=== PATIENT | female | born 1940 | race Caucasian/White ===

== ENCOUNTER → 2016-04-21 | Outpatient (CLI) | payer OTHER ==
--- NOTE | 2016-04-21 09:34 | EKG ---
[address] [address] Measurements Intervals [place] Rate: 74 P: -16 WA: 141 QRS: 50 QRSD: 86 T: 59 QT: 400 QTc: 428 Interpretive Statements SINUS RHYTHM WITH OCCASIONAL VENTRICULAR PREMATURE COMPLEXES POSSIBLE RIGHT VENTRICULAR CONDUCTION DELAY No previous ECG available for comparison Electronically Signed On 04-21-16 16:17:18 MST by Minor Cross [id number]
== END ==
LOC: MOB RAD 09:27
PROVIDERS: ATTEND Family Medicine
DX: R07.9 Chest pain, unspecified (principal); I49.9 Cardiac arrhythmia, unspecified; F17.210 Nicotine dependence, cigarettes, uncomplicated
CPT/HCPCS: 93005; 93010; 99213

== ENCOUNTER 2016-06-29 12:10 | Emergency (ER) | payer OTHER ==
[2016-06-29] MEDS ORDERED: NORMAL SALINE 10 ML SYRINGE FLUSH IVP PRN (12:42)
[2016-06-29] MEDS ORDERED: Famotidine Inj 20 MG in Normal Saline Flush 10 ML IVP ONE (12:42)
[2016-06-29] MEDS ORDERED: Sodium Chloride 0.9% 1,000 ML PRIMARY IV ONE (12:42)
[2016-06-29] MEDS ORDERED: Belladon/PHENobarbital Elixir 10 ML, Lidocaine Viscous Liquid 2% 15 ML, Mag Hyd/Al Hyd/... PO ONE ×3 (12:43)
[2016-06-29 12:53] LABS: BASOPHILS # (AUTO) 0.06 10*3/UL; BASOPHILS % (AUTO) 0.6 % (0-1); EOSINOPHILS # (AUTO) 0.25 10*3/UL; EOSINOPHILS % (AUTO) 2.4 % (0-8); HEMATOCRIT 45.4 % (37.0-47.0); LYMPHOCYTES # (AUTO) 2.59 10*3/uL; MEAN CORPUSCULAR HEMOGLOBIN 28.4 PG (27-31); MEAN PLATELET VOLUME 10.1 FL (7.4-12.2); MONOCYTES # (AUTO) 0.84 10*3/UL (0.3-0.8); NEUTROPHILS # (AUTO) 6.72 10*3/UL; NEUTROPHILS % (AUTO) 64.1 % (50-80); PLATELET MORPHOLOGY COMMENT NORMAL MORPHOLOGY (NORM); RBC MORPHOLOGY COMMENT NORMAL MORPHOLOGY (NORM); RED BLOOD COUNT 5.28 10^6/uL (4.20-5.40); WBC MORPHOLOGY COMMENT NORMAL MORPHOLOGY (NORM)
[2016-06-29 12:59] LABS: BUN/CREATININE RATIO 31.25 (6-20); SERUM ALBUMIN 4.7 g/dL (3.5-4.8)
[2016-06-29 13:29] VITALS: RESP 20; TEMP 96.7
[2016-06-29 13:50] LABS: BILIRUBIN,URINE NEGATIVE (NEG); CLARITY,URINE CLEAR (CLEAR); COLOR,URINE YELLOW; GLUCOSE, URINE (UA) NEGATIVE (NEG); NITRATE,URINE NEGATIVE (NEG); OCCULT BLOOD,URINE NEGATIVE (NEG); PH,URINE 6.5 (5.0-8.5); PROTEIN,URINE NEGATIVE (NEG); UROBILINOGEN,URINE 0.2 EU/dL (0.2)
[2016-06-29 14:15] LABS: URINE SAMPLE TYPE CLEAN CATCH URINE
--- NOTE | 2016-06-29 14:29 | DI ---
CT ABDOMEN SCAN WITH IV CONTRAST, 06/29/2016 12:42 PM : Clinical History: Abdominal pain. Previous Exam: 10/09/2009. Scans are performed from the lower lung bases through the liver and kidneys with IV contrast. 75 ml o f Isovue 300 was injected IV. No rectal or oral contrast was ordered. The lung bases are clear. Calcifications are present in the LAD, the right coronary artery, and the l eft circumflex artery. There is hepatosplenomegaly, similar in magnitude to the previous study. The p atient is status post cholecystectomy. Both adrenal glands and the pancreas are normal. In the lower pole of the spleen is a 25 mm low-density lesion. Review of the prior study shows that in retrospect, there was a 9 mm low-density lesion in the same location. Both kidneys are normal in size, shape, po sition and contour. There is no hydronephrosis or hydroureter. No renal or ureteral calculi are prese nt. There is a calcification in the region of the left renal hilum but this is in a vessel. There are no abnormal retrocrural or periaortic nodes. No ascites is present. READIN. Hepatosplenomegaly. In the lower pole spleen is a 25 mm low-density lesion. Review of the previou s scans show that in retrospect there was a 10 mm lesion in the same location. 2. The remainder of the exam is normal. CT PELVIS SCAN WITH IV CONTRAST, 06/29/2016 12:42 PM: Clinical History: See above. Previous Exam: 10/09/2009. Scans are performed from just superior to the umbilicus to the symphysis pubis with IV contrast. This is the same bolus of contrast used for the CT scans of the abdomen. Scans through the lower abdomen and pelvis show no masses or abnormal fluid collections. There is no adenopathy. The appendix is not visualized but there is no inflammatory mass either in the cecal tip or in the right lower quadrant. The small bowel, terminal ileum, and ileocecal valve are normal. The colon is also normal. There is a very small umbilical hernia through which only mesenteric fat has he rniated. The patient is status post hysterectomy and bilateral salpingo-oophorectomy. There is a lyti c lucent lesion in the body of L3 that was not present on the previous study. In addition, the verteb ral body is more sclerotic and almost has the classic "ivory" vertebral body appearance that can be s een with cases of lymphoma. READIN. A new lytic lesion has developed in the body of L3 with sharply defined margins. This vertebral b chu is also quite sclerotic in the remaining portions. The vertebral body has the appearance suggesti ve of the "ivory" vertebral body pattern that can be seen with lymphoma. 2. The remainder of the exam is normal.
--- NOTE | 2016-06-29 15:04 | PDOC ---
Abdomen/Flank HPI - General Chief Complaint: Abdomen Pain Stated Complaint: EPIGASTRIC PAIN RADIATING TO BACK Date Seen by Provider: 06/29/16 Time Seen by Provider: 10:20 Source: POSITIVE: Patient, Spouse Exam Limitations: POSITIVE: No limitations Nurse's Notes Reviewed & Considered: Yes - History of Present Illness Initial Comments: The patient is a 76-year-old female who presents to the emergency room with a 3 day history of epigastric pain with some radiation posteriorly. She also states that she has had "lots of gas". No vomiting or diarrhea. No fevers. No melena, hematochezia, hematemesis, dysuria or hematuria. She has had a appendectomy, cholecystectomy and hysterectomy. She states she has a long- standing history of similar episodes and has had this problem evaluated in the past with esophagogastroduodenoscopy. She states she has been told she has ulcers. She has a lifelong history of tobacco abuse and continues to smoke a pack of cigarettes per day. Body Location Affected: REPORTS: Abdomen Timing: REPORTS: Constant Duration: >24 hours (Reportedly 3 days, waxing and waning) Severity: Moderate Quality: REPORTS: Burning, "Pain" Abdominal Pain Onset Location: REPORTS: Epigastric Abdominal Pain Radiation: REPORTS: Back Context: REPORTS: None Modifying Factors: improves with: Nothing, Lying down (Some GERD at night when recumbent) Associated Symptoms: REPORTS: Denies symptoms Similar Symptoms Previously: Yes Recent Care Received: REPORTS: Denies Any Prior Injuries Related to Current Complaint?: No - Patient Home Medications Home Medications: Home Medications Multivitamin [Multi-Vitamin Daily] 1 each PO DAILY 01/22/14 Blood Sugar Diagnostic [Contour Next] 1 each BID #1 box 01/20/15 Pen Needle, Diabetic, Safety [Autoshield Duo Pen Needle] 1 each QHS #1 box Esomeprazole Magnesium [Nexium] 40 mg PO DAILY #90 cap 03/21/15 Insulin Glargine,Hum.rec.anlog [Osmar Chopra] 22 unit SUBCUT QHS #1 box 12/09 Amlodipine Besylate 10 mg ORAL QD #90 tab 03/24/16 Albuterol Sulfate [Ventolin Hfa] 1 - 2 puff INH Q4-6H #1 puff 04/30/16 Atorvastatin Calcium [Lipitor] 40 mg PO QHS #90 tab 01/13/17 Duloxetine HCl [Cymbalta] 60 mg ORAL QD #90 capsule 04/30/16 Fenofibrate 160 mg PO QHS #90 tab 04/30/16 Losartan Potassium 50 mg ORAL QD #90 tab 04/30/16 - Patient Allergies Allergies/Adverse Reactions: Allergies Allergy/AdvReac Type Severity Reaction Status Date / Time morphine Allergy Intermediate HALLUCINATI Verified 06/29/16 12:42 ONS oxycodone HCl Allergy Intermediate VOMITING Verified 06/29/16 12:42 [From OxyContin] Past Medical History - heen HEENT History: Denies History, Hard of Hearing, Dentures/Partials Cardiovascular History: Hypertension, Hyperlipidemia Respiratory History: Denies History Gastrointestinal History: GERD, Peptic Ulcer Disease Genitourinary History: Denies History Endocrine History: Type 2 Diabetes (insulin) Musculoskeletal History: Arthritis, Joint Pain, Osteoarthritis Prosthesis or Implant: Yes (BILAT KNEES) Neurological History: Denies History Blood Disorders: Denies History Psychiatric History: Depression History of Sexually Transmitted Diseases: Yes (LABIALIS HERPES) Female Reproductive History: Denies History Obstetrical History: Denies History Cancer History: Denies History In Past Year Been Physically Harmed or Verbally Threatened: No History of MDRO: No History of Other Communicable Diseases: No Tobacco Use: Current Every Day Smoker Alcohol Use: None Substance Use Type: None Previous Surgical History: Yes Type / Date of Surgery: APPY/ GABBI/ COLONOSCOPY/ EGD/ LEFT PAROTID GLAND RESECTION OF (BENIGN)/EMMY BSO/ BILAT TKA/CYST ON BILE DUCT Anesthesia Reactions: No Malignant Hyperthermia: No Significant Family History: Cancer, Hypertension Additional Family History: MOTHER-CA FATHER SKIN CA Past Medical History Reviewed: Reviewed - No Changes ROS - Limitations ROS Limitations: No Limitations Constitution: REPORTS: Denies Symptoms Cardiovascular: REPORTS: Denies Cardiac Symptoms Respiratory: REPORTS: Denies Resp Symptoms Neurological: REPORTS: Denies Neuro Symptoms Gastrointestinal: REPORTS: Abdominal Pain (Epigastric), Constipation Endocrine: REPORTS: Denies Symptoms Musculoskeletal: REPORTS: Denies MS Symptoms Genitourinary: REPORTS: Denies Symptoms Eyes: REPORTS: Denies Symptoms ENT: REPORTS: Denies Symptoms Skin: REPORTS: Denies Skin Symptoms Lympathic: REPORTS: Denies Lympathic Symptoms Immunologic: POSITIVE: Denies Symptoms Psychiatric: POSITIVE: Denies Psych Symptoms Abdominal/Flank Pain PE - General Appearance General Appearance: POSITIVE: Alert, Cooperative, No Acute Distress, No Evidence of Trauma - HEENT HEENT: POSITIVE: Head Inspection Nml, Eyes Inspection Nml, Ears Inspection Nml, Nose Inspection Nml, Oral/Dental Inspect. Nml, Pharynx Inspect. Nml, PERRL, EOMI - Neck Neck: POSITIVE: Normal Inspection, No Apparent Injury - Respiratory Respiratory: POSITIVE: No Respiratory Distress, Breath Sounds Normal, Chest Non- Tender - Cardiovascular Cardiovascular: POSITIVE: Regular Rate and Rhythm, Heart Sounds Normal, Equal Pulses, Strong Pulses Peripheral Pulses: Radial (R): 2+, Radial (L): 2+ - Chest Chest: POSITIVE: Non Tender - Abdomen Abdomen: Soft: (All Quadrants), Normal Bowel Sounds: (All Quadrants), Denies Tenderness: (LLQ), (RLQ), (LUQ), No Splenomegaly: (All Quadrants), No Hepatomegaly: (All Quadrants), No Guarding: (All Quadrants), No Rebound: (All Quadrants), No Palpable Pulse: (All Quadrants), No Palpabale Mass: (All Quadrants), No Distention: (All Quadrants), No Rigidity: (All Quadrants), Tenderness Noted: (RUQ) (and epigastrium) Additional Abdominal Details: Abdominal examination shows bowel sounds to be active. Patient does express some discomfort on deep direct palpation of the epigastrium. No masses or organomegaly or rebound. - Back Back: POSITIVE: Normal Inspection. NEGATIVE: CVA Tenderness (R), CVA Tenderness (L) - Skin Skin: POSITIVE: Intact, Normal For Race, Warm, Dry, No Rash - Extremities Extremity: Non-Tender: (All Extremities), Normal ROM: (All Extremities), Normal Inspection: (All Extremities) - Neurological Neurological: POSITIVE: Oriented X3, weed sprayer Normal As Tested, Motor Normal, Sensation Normal, 5, 6 - Psychological Psychiatric: POSITIVE: Affect Appropriate, Mood Appropriate Images - Complete Complete: 1 - Area of described discomfort and discomfort on palpation Abdomen Progress - Results Reviewed by me Xrays/CTs/US Reviewed by me: Yes Discussed with Radiologist: Yes Radiology Findings: CT scan of the abdomen and pelvis with IV contrast shows a lytic lesion on L3; also there is a splenic lesion which has increased in size from her last CT scan. Lab Results Reviewed: Yes Lab Results:: Laboratory Results 06/29/16 06/29/16 Range/Units 12:20 12:42 WBC 10.48 (4.8-10.8) 10^3/uL RBC 5.28 (4.20-5.40) 10^6/uL Hgb 15.0 (12.0-16.0) g/dL Hct 45.4 (37.0-47.0) % MCV 86.0 (81-99) FL MCH 28.4 (27-31) PG MCHC 33.0 (33-37) g/dL RDW Std Deviation 46.9 (39-50) fL RDW Coeff of Simran 14.9 H (11.5-14.5) % Plt Count 310 (140-350) 10*3/uL MPV 10.1 (7.4-12.2) FL Immature Gran % (Auto) 0.2 (0-5) % Neut % (Auto) 64.1 (50-80) % Lymph % (Auto) 24.7 (10-50) % Burnett % (Auto) 8.0 (5-15) % Eos % (Auto) 2.4 (0-8) % Baso % (Auto) 0.6 (0-1) % Immature Gran # (Auto) 0.02 10*3/UL Neut # (Auto) 6.72 10*3/UL Lymph # (Auto) 2.59 10*3/uL Burnett # (Auto) 0.84 H (0.3-0.8) 10*3/UL Eos # (Auto) 0.25 10*3/UL Baso # (Auto) 0.06 10*3/UL WBC Morphology Comment Normal morphology (NORM) Plt Morphology Comment Normal morphology (NORM) RBC Morph Comment Normal morphology (NORM) Sodium 139 (135-145) meq/L Potassium 4.0 (3.8-5.2) meq/L Chloride 104 (98-112) meq/L Carbon Dioxide 23 (23-33) meq/L Anion Gap 12 (5-20) BUN 25 H (7-22) mg/dL Creatinine 0.8 (0.50-1.20) mg/dL Estimated GFR (>60 ml/min/1.73m(2)) BUN/Creatinine Ratio 31.25 H (6-20) Glucose 176 H (78-110) mg/dL Calculated Osmolality 295.0 H (267-292) mOsm/kg Calcium 10.0 (8.7-10.7) mg/dL Total Bilirubin 0.8 (0.3-1.2) mg/dL AST 35 (8-39) IU/L ALT 15 (9-52) IU/L Alkaline Phosphatase 71 (38-126) IU/L Total Protein 8.1 H (6.1-8.0) g/dL Albumin 4.7 (3.5-4.8) g/dL Globulin 3.4 (2.50-4.10) g/dL Albumin/Globulin Ratio 1.30 (1.3-2.0) mg/g Amylase 50 (30-110) U/L Lipase 74 (23-300) IU/L Ur Collection Type Clean catch urine Urine Color Yellow Urine Clarity Clear (CLEAR) Urine pH 6.5 (5.0-8.5) Ur Specific Delta 1.010 (1.005-1.030) Urine Protein Negative (NEG) mg/dl Urine Glucose (UA) Negative (NEG) mg/dL Urine Ketones Negative (NEG) Urine Occult Blood Negative (NEG) Urine Nitrate Negative (NEG) Urine Bilirubin Negative (NEG) Urine Urobilinogen 0.2 (0.2) EU/dL Ur Leukocyte Esterase Negative (NEG) Ur Culture Indicated? Culture not set EKG Interpreted/Reviewed By Me:: Yes (frequent unifocal PACs) EKG Interpretation:: POSITIVE: Normal Sinus Rhythm, Normal Rate, Normal Intervals, Normal [place], Normal QRS, Normal ST/T, Abnormal EKG (Frequent unifocal PACs) - Patient's Progress Pain Medication Addressed: POSITIVE: Yes (Patient given Zantac IV and a GI cocktail which relieved her epigastric symptoms) School/Work Release Addressed: POSITIVE: Not Applicable Re-examine Time: 14:43 Re-Examine Comment: Patient epigastric discomfort much improved. I discussed with the patient and her the incidental findings of a lytic lesion in her lumbar vertebra and a probable splenic lesion. I advised both of them that I am strongly concerned about the possibility of malignancy, especially lymphoma. I stressed the importance of him following up with her primary care provider for further evaluation and probable referral as soon as possible. Status: POSITIVE: Improved, Re-Examined - Consult Counseled: POSITIVE: Patient, Family, RE: Lab Results, RE: Radiology Results, RE : DX, RE: Need for F/U Patient Care Time - Estimated PCT Patient Care Time (In Minutes): 55 Vital Signs - Recent Vital Signs Vital Signs: Vital Signs (Last 8 hours) Temp Pulse Resp BP Pulse Ox 06/29/16 12:14 96.7 F L 82 20 141/90 95 - VS Reviewed Vital Signs Reviewed: Yes Discharge Clinical Impression: Abdominal pain, Ulcer, Abnormal CT scan Discharge Disposition: Discharged to Home Condition: Stable Patient Instructions Given at Discharge: Peptic Ulcer (ED), Acute Abdominal Pain (ED), Computed Tomography Scan (ED) Additional Instructions: I believe the pain that you're having in your upper abdomen is most likely gastritis, or possibly a peptic ulcer. Please stop smoking, as tobacco abuse is associated with a high incidence of ulcers. Take Nexium as directed. You can augment this with Maalox, 2 tablespoons every 6 hours as necessary. Please follow-up with your primary care provider for further evaluation of your abdominal discomfort. The CT scan of your abdomen and pelvis showed a very worrisome lesion on one of your lumbar vertebra. It has a radiographic appearance of a so called "lytic lesion",, which is a lesion in the bone due to cancer. It is very important that you have this finding further evaluated. Please follow-up with your primary care provider, , as soon as possible so that you can be further evaluated for this finding. Return here anytime if condition worsens in any way. Follow Up With: ROVERTO GONZALEZ [Primary Care Provider] - (Instructions as above. Follow-up with your primary care provider as soon as possible to be further evaluated for possible cancer.)
--- NOTE | 2016-06-30 16:28 | EKG ---
[address] [address] Measurements Intervals [place] Rate: 84 P: [place]: 0 QRS: 45 QRSD: 83 T: 17 QT: 387 QTc: 428 Interpretive Statements SINUS RHYTHM WITH VENTRICULAR BIGEMINEY Compared to ECG 04/21/2016 09:35: Ventricular bigeminey now present present Electronically Signed On 06-30-16 16:42:44 MDT by Minor Cross [id number]
== END 2016-06-29 15:04 | disposition home or self-care (01) ==
LOC: ER 12:10
DX: R10.13 Epigastric pain (principal); R93.5 Abnormal findings on diagnostic imaging of other abdominal regions, including retroperitoneum; K25.3 Acute gastric ulcer without hemorrhage or perforation; Z72.0 Tobacco use; E11.9 Type 2 diabetes mellitus without complications; Z79.4 Long term (current) use of insulin
CPT/HCPCS: 74177; 80053; 81003; 82150; 83690; 85025; 93005; 93010; 96361; 96374; 99283; J7030

== ENCOUNTER → 2016-06-30 | Outpatient (CLI) | payer OTHER | LOC: MMPC 09:00 | PROVIDERS: ATTEND Family Medicine | DX: R16.1 Splenomegaly, not elsewhere classified (principal); R93.7 Abnormal findings on diagnostic imaging of other parts of musculoskeletal system; K22.70 Barrett's esophagus without dysplasia | CPT/HCPCS: 99213; G0463 ==

== ENCOUNTER → 2016-09-02 | Outpatient (CLI) | payer OTHER | LOC: MMPC 09:00 | PROVIDERS: ATTEND Family Medicine | DX: C90.00 Multiple myeloma not having achieved remission (principal); F32.0 Major depressive disorder, single episode, mild | CPT/HCPCS: 99213; G0463 ==

== ENCOUNTER → 2016-11-01 | Outpatient (CLI) | payer OTHER ==
--- NOTE | 2016-11-01 09:56 | DI ---
RIGHT RIB SERIES, 11/01/2016 9:07 AM: Clinical History: Right lower rib pain. Previous Exam: None at this facility. Two views are submitted. The technologist placed the metal marker in the lower ribs over the area of pain. There are no definite rib fractures noted, but on the coned-down view of the lower ribs, the ei ghth rib laterally has a slightly angulated appearance and this may represent an occult fracture. The visualized portions of the lung are normal. Reading: No acute fractures are visualized. On the coned-down view, a somewhat sharp angulation is noted on th e eighth rib laterally. This may represent an occult rib fracture although the history does not indic ate the patient sustained trauma. This should be correlated clinically.
== END ==
LOC: MOB RAD 09:20
PROVIDERS: ATTEND Family Medicine
DX: R07.81 Pleurodynia (principal); I10 Essential (primary) hypertension; E78.5 Hyperlipidemia, unspecified; C90.00 Multiple myeloma not having achieved remission; E11.9 Type 2 diabetes mellitus without complications; X50.1XXA Overexertion from prolonged static or awkward postures, initial encounter
CPT/HCPCS: 71100; 99213

== ENCOUNTER → 2016-11-02 | Outpatient (CLI) | payer OTHER ==
[2016-11-02 08:01] LABS: BASOPHILS # (AUTO) 0.12 10*3/UL; BASOPHILS % (AUTO) 1.3 % (0-1); EOSINOPHILS % (AUTO) 3.3 % (0-8); HEMATOCRIT 45.9 % (37.0-47.0); HEMOGLOBIN 15.2 g/dL (12.0-16.0); MEAN CORPUSCULAR HEMOGLOBIN 28.8 PG (27-31); MEAN CORPUSCULAR HGB CONC 33.1 g/dL (33-37); MEAN CORPUSCULAR VOLUME 86.9 FL (81-99); MEAN PLATELET VOLUME 10.1 FL (7.4-12.2); MONOCYTES # (AUTO) 0.67 10*3/UL (0.3-0.8); MONOCYTES % (AUTO) 7.4 % (5-15); NEUTROPHILS # (AUTO) 5.69 10*3/UL; NEUTROPHILS % (AUTO) 62.5 % (50-80); RED BLOOD COUNT 5.28 10^6/uL (4.20-5.40)
[2016-11-02 08:02] LABS: PLATELET MORPHOLOGY COMMENT NORMAL MORPHOLOGY (NORM); RBC MORPHOLOGY COMMENT NORMAL MORPHOLOGY (NORM); WBC MORPHOLOGY COMMENT NORMAL MORPHOLOGY (NORM)
[2016-11-02 08:10] LABS: HEMOGLOBIN A1C 7.24 % (4.2-6.0)
[2016-11-02 08:13] LABS: CALCIUM 9.8 mg/dL (8.7-10.7); CHOL/HDL RATIO 4.33 RATIO (0-4.0); LDL CHOLESTEROL,CALCULATED 108.4 mg/dL; SERUM ALBUMIN 4.4 g/dL (3.5-4.8)
== END ==
LOC: LAB 07:41
PROVIDERS: ATTEND Family Medicine
DX: C90.00 Multiple myeloma not having achieved remission (principal); E11.9 Type 2 diabetes mellitus without complications; Z79.4 Long term (current) use of insulin; E78.5 Hyperlipidemia, unspecified; I10 Essential (primary) hypertension; R07.81 Pleurodynia; F17.200 Nicotine dependence, unspecified, uncomplicated
CPT/HCPCS: 36415; 80053; 80061; 82306; 83036; 84443; 85025